=== PATIENT | male | born 1995 | race Caucasian/White ===

== ENCOUNTER 2020-06-30 12:21 | Inpatient (IN) | payer OTHER, SELFPAY ==
[2020-06-30 12:30] VITALS: BP 159/95; PULSE 66; RESP 18; TEMP 36.7; O2SAT 98
--- NOTE | 2020-06-30 12:34 | ED.PSYCH ---
HPI - Psych General Chief Complaint: Psychiatric Symptoms Stated Complaint: crisis si Time Seen by Provider: 06/30/20 12:34 Source: EMS Mode of arrival: EMS Limitations: no limitations History of Present Illness HPI Narrative: This is a 25-year-old male who presents via EMS he has a history of anxiety, depression, ADHD presenting from the crisis office where he was outside the office complaining of psychiatric distress. States has had increasing social stressors has had thoughts of SI. States he is overwhelmed has been some inconsistencies with him taking his anti depressants. Denies any EtOH or illicit substance use. MD complaint: suicidal ideation (Vague SI) and feels depressed Relieving factors: none Exacerbating factors: other (Social stressors/poor medication compliance) Treatments prior to arrival: none Related Data Home Medications Medication Instructions Recorded Confirmed venlafaxine 1 cap PO DAILY 06/30/20 06/30/20 Allergies Allergy/AdvReac Type Severity Reaction Status Date / Time Sulfa (Sulfonamide Allergy Rash Verified 06/30/20 12:33 Antibiotics) Review of Systems Review of Systems: Constitutional: No Weight loss, No Fever, No Chills, No Night Sweats, No Fatigue, No Malaise ENT/Mouth: No Hearing loss, No Ear Pain, No Nasal Congestion, No Sinus Pain, No Hoarseness, No sore throat, No Rhinorrhea, No Swallowing Difficulty Eyes: No Eye Pain, No Swelling, No Redness, No Foreign Body, No Discharge, No Vision Changes Cardiovascular: No Chest Pain, No SOB, No Dyspnea on Exertion, No Orthopnea, No Edema, No Palpitations Respiratory: No Cough, No Sputum, No Wheezing, No Dyspnea Gastrointestinal: No Nausea, No Vomiting, No Diarrhea, No Constipation, No abdominal Pain, No Hematochezia, No Melena Genitourinary: no irregular bleeding, No Dysuria, No Urinary Frequency, No Hematuria, No Urinary Incontinence, No Urgency, No Flank Pain, No Urinary Flow Changes, No Hesitancy Musculoskeletal: No joint pain, No Myalgias, No Joint Swelling Skin: No Skin Lesions, No rash Neuro: No Weakness, No Numbness, No Paresthesias, No Loss of Consciousness, No Dizziness, No Headache Psych: As noted in HPI Heme/Lymph: No Bruising, No Bleeding,No Lymphadenopathy Endocrine: No Polyuria, No Polydipsia, No Temperature Intolerance Yes all other systems are reviewed and are negative PMFSH Past Medical History Medical History Anxiety Depression PTSD (post-traumatic stress disorder) Social History Social History Alcohol intake: never Smoked in Last 30 Days: No Use of substances other than those prescribed or required for medical reasons: No Advance Directives: No Advance Directives Information Provided: Yes Physical Exam Vital Signs: Vital Signs: Last Vital Signs Temp 98.0 F 06/30/20 12:30 Pulse 66 06/30/20 12:30 Resp 16 06/30/20 17:11 BP 159/95 H 06/30/20 12:30 Pulse Ox 98 06/30/20 12:30 Body Mass Index 20.0 Reviewed Const: General: cooperative and healthy appearing; No acute distress or intoxicated appearing Nutritional Appearance: average body habitus Orientation/consciousness: patient oriented x3 HENMT: Head: Yes normal to inspection Ears: hearing grossly normal bilaterally Eyes: General: appearance normal, both eyes and all related structures Visual Bledsoe: normal visual bledsoe by confrontation Neck: Neck: Yes normal visual inspection, No positive Brudzinski's sign, No positive Kernig's sign and No tender Thyroid: Thyroid normal Chest: Chest palpation & inspection: normal inspection of the chest Resp: Effort & Inspection: normal respiratory effort Auscultation: clear to auscultation bilaterally Cardio: Jugular venous distension: no JVD Rhythm: regular rhythm Heart sounds: S1 normal heart sound present and S2 normal heart sound present GI: Inspection: Yes normal to inspection Percussion: Yes normal to percussion Auscultation: normal bowel sounds : General: Yes no CVA tenderness Back/Spine/Pelvis: Back: no CVA tenderness Skin: General skin exam: no rashes or lesions noted Neuro: General: patient oriented x3 Extrem: General: Yes normal to inspection Course Course Course Narrative: 1235 In review 25-year-old male with history of anxiety, depression, ADHD presents via EMS from outside of crisis team office with complaint of vague suicidal ideations which she denies at this time but reported to EMS. States all this is secondary to ?Life stressors? and laboratories on this as he had a COVID exposure couple weeks ago he has had negative COVID test but this has made his anxiety worse and also some compliance issues with his antidepressants. He denies any illicit substance use. Offers no medical complaints at this time. 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 Will get UA/U tox and EtOH for medical screening and obtain crisis evaluation. Consultations Consultation #1: [id number] Evaluate by the care team recommended further inpatient level care voluntary. Will make bed search Son at the night team pending disposition. MDM - Psych Lab Data Result diagrams: 06/30/20 19:52 06/30/20 19:52 Labs: Lab Results 06/30/20 06/30/20 06/30/20 Range/Units 13:34 19:52 19:52 WBC 7.0 (4.8-10.8) X10*3/uL RBC 5.30 (4.60-5.80) X10*6/uL Hgb 16.1 (14.0-18.0) g/dl Hct 47.3 (42-52) % MCV 89.2 (80-98) fL MCH 30.4 (27.0-33.0) pg MCHC 34.0 (31.0-36.0) g/dl RDW 12.1 (11.0-16.0) % Plt Count 175 (160-400) X10*3/uL MPV 12.1 (9.4-12.4) fL Immature Gran % (Auto) 0.3 (0.0-0.4) % Neut % (Auto) 57.7 (45-73) % Lymph % (Auto) 30.0 (20-40) % [place] % (Auto) 7.4 (2-11) % Eos % (Auto) 3.7 (0-4) % Baso % (Auto) 0.9 (0-2) % Lymph # (Auto) 2.1 (1.2-4.9) X10*3/uL [place] # (Auto) 0.5 (0.1-1.2) X10*3/uL Eos # (Auto) 0.3 (0.0-0.4) X10*3/uL Baso # (Auto) 0.1 (0.0-0.2) X10*3/uL Abs Immat Gran (auto) 0.02 (0.00-0.03) X10*3/uL Absolute Neuts (auto) 4.0 (2.0-8.3) X10*3/uL Absolute Nucleated RBC 0.000 (0.0-0.012) X10*3/uL Nucleated RBC % (auto) 0.0 (0.0-0.2) /100WBC BUN 14 (9-16) mg/dL Creatinine 0.79 (0.5-1.4) mg/dL Estim Creat Clear Calc 107.2 Estimated GFR > 60 Random Glucose 84 (60-115) mg/dL Calcium 9.5 (8.4-10.2) mg/dL Total Bilirubin 0.4 (0.0-1.0) mg/dL AST 52 H (5-37) U/L ALT 121 H (0-40) U/L Alkaline Phosphatase 82 (39-117) U/L Total Protein 7.9 (6.5-8.0) g/dL Albumin 4.7 (3.5-5.0) g/dL Urine Color Urine Appearance Urine pH (5.0-8.0) Ur Specific [place] (1.005-1.025) Urine Protein (NEG-TRACE) MG/DL Urine Glucose (UA) (NEG) MG/DL Urine Ketones (NEG) MG/DL Urine Blood (NEG) Urine Nitrite (NEG) Ur Leukocyte Esterase (NEG) Urine RBC (0) /HPF Urine WBC (0-4) /HPF Ur Squamous Epith Cells /LPF Urine Bacteria /LPF Urine Mucus /LPF Urine Opiates Screen (Not Detect) Ur Barbiturates Screen (Not Detect) Ur Phencyclidine Scrn (Not Detect) Ur Amphetamines Screen (Not Detect) U Benzodiazepines Scrn (Not Detect) Urine Cocaine Screen (Not Detect) U Marijuana (THC) Screen (Not Detect) Ethyl Alcohol < 10 mg/dL 06/30/20 06/30/20 Range/Units 20:07 20:07 WBC (4.8-10.8) X10*3/uL RBC (4.60-5.80) X10*6/uL Hgb (14.0-18.0) g/dl Hct (42-52) % MCV (80-98) fL MCH (27.0-33.0) pg MCHC (31.0-36.0) g/dl RDW (11.0-16.0) % Plt Count (160-400) X10*3/uL MPV (9.4-12.4) fL Immature Gran % (Auto) (0.0-0.4) % Neut % (Auto) (45-73) % Lymph % (Auto) (20-40) % [place] % (Auto) (2-11) % Eos % (Auto) (0-4) % Baso % (Auto) (0-2) % Lymph # (Auto) (1.2-4.9) X10*3/uL [place] # (Auto) (0.1-1.2) X10*3/uL Eos # (Auto) (0.0-0.4) X10*3/uL Baso # (Auto) (0.0-0.2) X10*3/uL Abs Immat Gran (auto) (0.00-0.03) X10*3/uL Absolute Neuts (auto) (2.0-8.3) X10*3/uL Absolute Nucleated RBC (0.0-0.012) X10*3/uL Nucleated RBC % (auto) (0.0-0.2) /100WBC BUN (9-16) mg/dL Creatinine (0.5-1.4) mg/dL Estim Creat Clear Calc Estimated GFR Random Glucose (60-115) mg/dL Calcium (8.4-10.2) mg/dL Total Bilirubin (0.0-1.0) mg/dL AST (5-37) U/L ALT (0-40) U/L Alkaline Phosphatase (39-117) U/L Total Protein (6.5-8.0) g/dL Albumin (3.5-5.0) g/dL Urine Color YELLOW Urine Appearance CLEAR Urine pH 6.0 (5.0-8.0) Ur Specific [place] >= 1.030 H (1.005-1.025) Urine Protein NEG (NEG-TRACE) MG/DL Urine Glucose (UA) NEG (NEG) MG/DL Urine Ketones NEG (NEG) MG/DL Urine Blood TRACE (NEG) Urine Nitrite NEG (NEG) Ur Leukocyte Esterase NEG (NEG) Urine RBC 0-2 (0) /HPF Urine WBC 0-2 (0-4) /HPF Ur Squamous Epith Cells 1+ /LPF Urine Bacteria 1+ /LPF Urine Mucus 1+ /LPF Urine Opiates Screen Not Detected (Not Detect) Ur Barbiturates Screen Not Detected (Not Detect) Ur Phencyclidine Scrn Not Detected (Not Detect) Ur Amphetamines Screen Not Detected (Not Detect) U Benzodiazepines Scrn Not Detected (Not Detect) Urine Cocaine Screen Not Detected (Not Detect) U Marijuana (THC) Screen POSITIVE H (Not Detect) Ethyl Alcohol mg/dL Discharge Plan Discharge Clinical Impression: Depression Prescriptions: No Action venlafaxine 75 mg capsule,extended release 24hr 1 cap PO DAILY RF: 0
--- NOTE | 2020-06-30 12:41 | PC.NURSE ---
Pt changed into hospital attire w/ security, belongings placed in [facility]. Pt is calm and cooperative at this time.
[2020-06-30 14:00] LABS: Ethanol < 10 mg/dL
--- NOTE | 2020-06-30 14:32 | PC.NURSE ---
faxed to [facility]. attempt to call and unable to get through.
[2020-06-30 17:11] VITALS: RESP 16
--- NOTE | 2020-06-30 17:32 | PC.NURSE ---
JIMMIE faxed and called.
--- NOTE | 2020-06-30 17:44 | PC.NURSE ---
DINNER TRAY GIVEN.
--- NOTE | 2020-06-30 19:33 | PC.NURSE ---
Report received. PT is inquiring about his plan for treatment. This nurse explained that he is an inpatient bed search and our CARE team is working to accommodate his needs. PT is agreeing to plan, calm and cooperative.
[2020-06-30 20:03] LABS: MANUAL DIFF FLAG NO
[2020-06-30 20:05] LABS: Basophils Absolute Auto 0.1 X10*3/uL (0.0-0.2); Basophils Percent Auto 0.9 % (0-2); Eosinophils Absolute Auto 0.3 X10*3/uL (0.0-0.4); Eosinophils Percent Auto 3.7 % (0-4); Hematocrit 47.3 % (42-52); Hemoglobin 16.1 g/dl (14.0-18.0); Imm Gran Abs Auto 0.02 X10*3/uL (0.00-0.03); Imm Gran Pct Auto 0.3 % (0.0-0.4); Lymphocytes Absolute Auto 2.1 X10*3/uL (1.2-4.9); Mean Corpuscular Hemoglobin 30.4 pg (27.0-33.0); Mean Corpuscular Volume 89.2 fL (80-98); Mean Platelet Volume 12.1 fL (9.4-12.4); Monocytes Absolute Auto 0.5 X10*3/uL (0.1-1.2); Monocytes Percent Auto 7.4 % (2-11); Neutrophils Percent Auto 57.7 % (45-73); Platelet Count 175 X10*3/uL (160-400); Red Cell Distribution Width 12.1 % (11.0-16.0)
[2020-06-30 20:16] LABS: Glucose Urine UA NEG (NEG); Leukocyte Esterase Urine NEG (NEG); Nitrite Urine NEG (NEG); Specific Gravity - Urine >= 1.030 (1.005-1.025); Urine Blood TRACE (NEG); Urine Ketones NEG (NEG); Urine Protein NEG (NEG-TRACE)
[2020-06-30 20:22] LABS: Appearance Urine CLEAR; Color Urine YELLOW
[2020-06-30 20:23] LABS: Bacteria Urine 1+ /LPF; Mucus Urine 1+ /LPF; RBC Urine 0-2 /HPF (0); Squamous Epithelial Cell Urine 1+ /LPF; WBC Urine 0-2 /HPF (0-4)
[2020-06-30 20:39] LABS: Amphetamine Screen Urine Not Detected (Not Detect); Barbiturates, Urine Not Detected (Not Detect); Benzodiazepines Screen Urine Not Detected (Not Detect); Cannabinoid Screen Urine POSITIVE (Not Detect); Cocaine Screen Urine Not Detected (Not Detect); Opiate Screen Urine Not Detected (Not Detect); Phencyclidine Screen Urine Not Detected (Not Detect)
[2020-06-30 21:14] LABS: Alanine Aminotransferase 121 U/L (0-40); Albumin Level 4.7 g/dL (3.5-5.0); Alkaline Phosphatase 82 U/L (39-117); Aspartate Amino Transferase 52 U/L (5-37); Bilirubin Total 0.4 mg/dL (0.0-1.0); Blood Urea Nitrogen 14 mg/dL (9-16); Calcium 9.5 mg/dL (8.4-10.2); Creatinine Clr Calc Pharmacy 107.2; Estimated Glomerular Filt Rate > 60; Glucose Random 84 mg/dL (60-115); Total Protein 7.9 g/dL (6.5-8.0)
[2020-06-30 21:20] LABS: Anion Gap 15 (12-20); Carbon Dioxide 28 mmol/L (22-29); Chloride 101 mmol/L (96-108); Potassium 4.2 mmol/l (3.3-5.1); Sodium 140 mmol/L (135-145)
[2020-06-30 21:24] LABS: COVID-19 Test Negative (Negative); IDNOW Serial# 9DD0AD1C
--- NOTE | 2020-06-30 21:54 | MHC.CARE ---
Pt evaluated by CARE team at 1800, disposition for voluntary inpt psych admission. Unable to communicate with insurance company this evening, CARE team will contact in the morning to determine if hospital is in-network. Pt will remain in ED overnight. Possible M5 admission pending insurance approval.
[2020-06-30 23:09] VITALS: BP 130/86; PULSE 66; RESP 18; TEMP 36.4; O2SAT 97
--- NOTE | 2020-07-01 00:31 | PC.NURSE ---
PT complaining that he is having difficulty sleeping. Provider notified and one time dose of trazadone was given.
[2020-07-01] MEDS: traZODone HCL 100 MG TABLET PO (01:02)
[2020-07-01 06:45] VITALS: BP 111/58; PULSE 84; RESP 16; TEMP 36.5; O2SAT 97
[2020-07-01 09:22] VITALS: BP 131/64; PULSE 80; RESP 16; TEMP 37.2; O2SAT 97
[2020-07-01] MEDS: Venlafaxine HCl ER 75 MG CAP.ER.24H PO (09:31)
--- NOTE | 2020-07-01 10:09 | PC.NURSE ---
Patient awake and alert. skin PWD, resp even and non labored, speaking in full, clear sentences. denies SI at this time, states he is not feeling depressed. awaiting disposition
--- NOTE | 2020-07-01 11:23 | MHC.CARE ---
Calls to Call [facility] [phone] [employer] Subha?this is an, ?open access plan, there is no network? Reimbursement rate is 125% of Medicare, transferred to Rosio from [employer]?member is active, Lev is the primary card quijano. $500 copay, 90% covered after $1,250 deductible $7,000 out of pocket, transferred to Melissa?Reference # [id number] Fax clinical to [phone] for review and ongoing, transferred to RN for clinical review for admission?left message with CARE Team call back info, member ID and reference #
--- NOTE | 2020-07-01 12:16 | PC.NURSE ---
patient aware of and agreeable to plan of admission to .
[2020-07-01 14:19] VITALS: BP 137/86; PULSE 92; RESP 14; O2SAT 97
--- NOTE | 2020-07-01 14:21 | PC.NURSE ---
Patient resting in bed, skin pwd, resp even and non labored. speaking in full, clear sentences, denies SI. waiting to hear back from CARE team
--- NOTE | 2020-07-01 15:31 | PC.NURSE ---
Report received. Pt currently resting in bed, no complaints at this time.
--- NOTE | 2020-07-01 15:51 | PC.NURSE ---
Nurse to nurse given to PARAM Mason on M5
[2020-07-02] MEDS: traZODone HCL 50 MG TABLET PO (01:09)
[2020-07-02 06:00] VITALS: BP 147/84; PULSE 96; TEMP 36.6; O2SAT 97
[2020-07-02] MEDS: Venlafaxine HCl ER 75 MG CAP.ER.24H PO (08:50)
[2020-07-02 09:18] LABS: Alanine Aminotransferase 166 U/L (0-40); Albumin Level 4.5 g/dL (3.5-5.0); Alkaline Phosphatase 80 U/L (39-117); Anion Gap 10 (12-20); Aspartate Amino Transferase 75 U/L (5-37); Bilirubin Total 1.1 mg/dL (0.0-1.0); Blood Urea Nitrogen 14 mg/dL (9-16); Calcium 9.5 mg/dL (8.4-10.2); Carbon Dioxide 30 mmol/L (22-29); Chloride 100 mmol/L (96-108); Estimated Glomerular Filt Rate > 60; Glucose Fasting 89 mg/dL (60-99); Potassium 4.3 mmol/l (3.3-5.1); Sodium 136 mmol/L (135-145); Total Protein 7.4 g/dL (6.5-8.0)
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
[2020-07-02 14:37] LABS: Amylase 104 U/L (28-100); Lipase 48 U/L (8-78)
[2020-07-02 14:58] LABS: TSH reflex Free T4 0.59 mIU/mL (0.32-4.0); Vitamin D 25-OH Total 5.3 ng/mL (>30)
[2020-07-02 15:32] LABS: Folate 19.1 ng/mL (> or = 4.0); Vitamin B12 363 pg/mL (200-900)
[2020-07-02 18:00] VITALS: BP 138/75; PULSE 88; TEMP 36.3
[2020-07-02] MEDS: OXcarbazepine 300 MG TABLET PO (20:56)
[2020-07-03] MEDS: traZODone HCL 50 MG TABLET PO ×2 (01:37→21:25)
[2020-07-03 06:00] VITALS: BP 117/75; PULSE 110; TEMP 36.4; O2SAT 97
[2020-07-03 08:03] LABS: HBsAGNum1 0.16 S/CO (0.00-0.99); Hepatitis A Antibody IgM 0.19 Index (0-0.79); Hepatitis B Surface Antigen Negative (Negative); ~Hepatitis A Antibody IgM Nonreactive (Nonreactive)
[2020-07-03 08:17] LABS: HBc Num1 0.05 S/CO (0.00-0.79); Hepatitis B Core Antibody Nonreactive (Nonreactive); ~Hepatitis B Surface Antibody NONREACTIVE (Nonreactive); ~Hepatitis C Antibody Nonreactive (Nonreactive)
[2020-07-03] MEDS: OXcarbazepine 300 MG TABLET PO ×2 (08:29→20:41)
[2020-07-03] MEDS: Venlafaxine HCl ER 75 MG CAP.ER.24H PO (08:29)
[2020-07-03 18:00] VITALS: BP 135/80; PULSE 99; TEMP 36.4
--- NOTE | 2020-07-03 18:02 | P.PNPSI_ITS ---
Subjective Subjective Date of Service: 07/03/20 Reason For Visit: Depression anxiety si Subjective Notes: Conditional Voluntary Interim History: Pt reports he is tolerating Trileptal. Finds milieu helpful. This was the right decision for me. Discussed PHP. Medication Compliance: Yes Side effects from medications: No Attending Groups: Yes Review of Systems Review of Systems Yes all other systems are reviewed and are negative (denies sx of concern or pain) Psychiatric: Reports anxiety, Reports depression, Reports difficulty concentrating, Reports hopelessness, Reports irritability, Reports anhedonia, Reports mood swings, Reports panic attacks and Reports suicidal ideation (passive-lifelong, no current plan or intent) Mental Status Exam Mental Status Exam Patient Appearance: Appropriate Patient Orientation: Person, Place, Time and Situation Level of Consciousness: Alert Patient Behavior: Cooperative Mood Description: Depressed and Anxious Affect Description: Flat Patient Cognition Impaired: No Ability to Follow Directions: Good Speech Pattern: Spontaneous Speech Memory Description: Intact Hallucinations: None Delusions: Not Present Thought Process: Intact Thought Content: positive for Intact Depressive Symptoms: Increased Anxiety, Diff. Making Decisions, Increased Irritability, Difficulty Sleeping, Crying Spells, Loss of Int. in Activity, Feelings of Worthlessness, Feelings of Guilt, Unhappiness, Thoughts of D eath/Suicide, Low Self Esteem, Loss of Energy and Difficulty Concentrating Judgement: Good Diagnostics Vital Signs (24Hr): Vital Signs - 24 hr 07/03/20 06:00 Temperature 97.5 F Pulse Rate 110 H Blood Pressure 117/75 Pulse Oximetry 97 Body Mass Index 20.0 Labs Results: 06/30/20 19:52 07/02/20 08:20 Labs: Laboratory Results - last 48 hr 07/02/20 07/02/20 07/02/20 08:20 08:20 14:28 Sodium 136 Potassium 4.3 Chloride 100 Carbon Dioxide 30 H Anion Gap 10 L BUN 14 Creatinine 0.77 Estim Creat Clear Calc 110.0 Estimated GFR > 60 Fasting Glucose 89 Calcium 9.5 Total Bilirubin 1.1 H AST 75 H ALT 166 H Alkaline Phosphatase 80 Total Protein 7.4 Albumin 4.5 Amylase 104 H Lipase 48 Vitamin B12 363 25-OH Vitamin D Total 5.3 Folate 19.1 TSH 0.59 Hepatitis A IgM Ab Nonreactive Hep Bs Antigen Negative Hep Bs Antibody NONREACTIVE Hep B Core Total Ab Nonreactive Hepatitis C Ab (EIA) Nonreactive Medications Medications Current Medications Generic Name Dose Route Start Last Admin Trade Name Freq PRN Reason Stop Dose Admin Hydroxyzine HCl 25 mg 07/03/20 01:20 Hydroxyzine Hcl 25 Mg Tablet PO BEDTIME PRN Sleep Oxcarbazepine 300 mg 07/02/20 21:00 07/03/20 08:29 Oxcarbazepine 300 Mg Tablet PO 300 mg BID DOROTHY Administration Trazodone HCl 50 mg 07/03/20 01:14 07/03/20 01:37 Trazodone Hcl 50 Mg Tablet PO 50 mg BEDTIME PRN Administration Sleep Venlafaxine HCl 75 mg 07/01/20 09:00 07/03/20 08:29 Venlafaxine Hcl Er 75 Mg Cap.Er.24h PO 75 mg DAILY DOROTHY Administration Allergies Allergies Allergy/AdvReac Type Severity Reaction Status Date / Time Sulfa (Sulfonamide Allergy Rash Verified 06/30/20 12:33 Antibiotics) Assessment & Plan Assessment & Plan (1) Bipolar II disorder: Status: Acute Code(s): F31.81 - Bipolar II disorder Assessment and Plan: -Continue Trileptal -Consider [facility] referral (2) Cannabis use disorder, severe, dependence: Status: Acute Code(s): F12.20 - Cannabis dependence, uncomplicated (3) ADHD: Status: Acute Code(s): F90.9 - Attention-deficit hyperactivity disorder, unspecified type Greater than 50% of the session was spent on counseling and/or coordination of care
[2020-07-03] MEDS: hydrOXYzine HCL 25 MG TABLET PO (22:34)
[2020-07-04 06:00] VITALS: BP 119/80; PULSE 70; TEMP 36.8
[2020-07-04] MEDS: OXcarbazepine 300 MG TABLET PO ×2 (09:28→20:03)
[2020-07-04] MEDS: Venlafaxine HCl ER 75 MG CAP.ER.24H PO (09:29)
[2020-07-04 18:00] VITALS: BP 138/92; PULSE 100
--- NOTE | 2020-07-04 22:13 | HO.PSYCHPN ---
Subjective Subjective Date of Service: 07/05/20 Reason For Visit: Depression anxiety si Interim History: pt reports he's doing much better, in good mood, no SI. He says he's sleeping well and thinks that new medication is helping. He denies any med side-effects. Patient thinks he's getting ready for discharge and would very much like to start [facility]. Pt shared further of his struggles with anxiety and how triggers from his past continue to derail him. Pt would like outpt therapy but has trouble affording it. Otherwise, no complaints. Nursing staff reports patient can at times have immature behaviors in milue, but gets along well with peers and staff and is engaged in treatment. Medication Compliance: Yes Side effects from medications: No Attending Groups: Yes Mental Status Exam Mental Status Exam Patient Appearance: Well Grooomed Patient Orientation: Person, Place, Time and Situation Level of Consciousness: Awake and Appropriate Patient Behavior: Appropriate and Good Eye Contact Mood Description: Happy Affect Description: Happy Ability to Follow Directions: Good Speech Pattern: Clear and Appropriate Hallucinations: None Delusions: Not Present Thought Process: Intact and Linear Thought Content: positive for Intact Judgement: Fair Diagnostics Vital Signs (24Hr): Vital Signs - 24 hr 07/04/20 06:00 07/04/20 18:00 Temperature 98.2 F Pulse Rate 70 100 Blood Pressure 119/80 138/92 H Body Mass Index 20.0 Labs Results: 06/30/20 19:52 07/02/20 08:20 Labs: Laboratory Results - last 48 hr 07/02/20 14:28 Hepatitis A IgM Ab Nonreactive Hep Bs Antigen Negative Hep Bs Antibody NONREACTIVE Hep B Core Total Ab Nonreactive Hepatitis C Ab (EIA) Nonreactive Medications Medications Current Medications Generic Name Dose Route Start Last Admin Trade Name Freq PRN Reason Stop Dose Admin Hydroxyzine HCl 25 mg 07/03/20 01:20 07/03/20 22:34 Hydroxyzine Hcl 25 Mg Tablet PO 25 mg BEDTIME PRN Administration Sleep Oxcarbazepine 300 mg 07/02/20 21:00 07/04/20 20:03 Oxcarbazepine 300 Mg Tablet PO 300 mg BID DOROTHY Administration Trazodone HCl 50 mg 07/03/20 01:14 07/03/20 21:25 Trazodone Hcl 50 Mg Tablet PO 50 mg BEDTIME PRN Administration Sleep Venlafaxine HCl 75 mg 07/01/20 09:00 07/04/20 09:29 Venlafaxine Hcl Er 75 Mg Cap.Er.24h PO 75 mg DAILY DOROTHY Administration Allergies Allergies Allergy/AdvReac Type Severity Reaction Status Date / Time Sulfa (Sulfonamide Allergy Rash Verified 06/30/20 12:33 Antibiotics) Assessment & Plan Impression: hx of mood lability; stabilizing on unit; tolerating medications to good effect dx: bipolar II likely ptsd plan; continue current tx plan; no changes Greater than 50% of the session was spent on counseling and/or coordination of care
[2020-07-04] MEDS: traZODone HCL 50 MG TABLET PO (23:13)
[2020-07-05 06:45] VITALS: BP 143/94; PULSE 98; RESP 16; TEMP 36.2; O2SAT 95
[2020-07-05] MEDS: Venlafaxine HCl ER 75 MG CAP.ER.24H PO (08:26)
[2020-07-05] MEDS: OXcarbazepine 300 MG TABLET PO ×2 (08:26→22:12)
[2020-07-05 16:40] VITALS: BP 118/80; PULSE 84; TEMP 36.4
[2020-07-05] MEDS: traZODone HCL 50 MG TABLET PO (22:18)
--- NOTE | 2020-07-05 23:28 | HO.PSYCHPN ---
Subjective Subjective Date of Service: 07/05/20 Reason For Visit: Depression anxiety si Interim History: pt reports he's doing well; good mood and future focused, still hoping to go to Partial day program. No complaints. Medication Compliance: Yes Side effects from medications: No Attending Groups: Yes Mental Status Exam Mental Status Exam Narrative: Patient Appearance: Well Grooomed Patient Orientation: Person, Place, Time and Situation Level of Consciousness: Awake and Appropriate Patient Behavior: Appropriate and Good Eye Contact Mood Description: Happy Affect Description: Happy Ability to Follow Directions: Good Speech Pattern: Clear and Appropriate Hallucinations: None Delusions: Not Present Thought Process: Intact and Linear Thought Content: positive for Intact Judgement: Fair Diagnostics Vital Signs (24Hr): Vital Signs - 24 hr 07/05/20 06:45 07/05/20 16:40 Temperature 97.1 F 97.6 F Pulse Rate 98 84 Respiratory Rate 16 Blood Pressure 143/94 H 118/80 Pulse Oximetry 95 Body Mass Index 20.0 Labs Results: 06/30/20 19:52 07/02/20 08:20 Medications Medications Current Medications Generic Name Dose Route Start Last Admin Trade Name Freq PRN Reason Stop Dose Admin Hydroxyzine HCl 25 mg 07/03/20 01:20 07/03/20 22:34 Hydroxyzine Hcl 25 Mg Tablet PO 25 mg BEDTIME PRN Administration Sleep Oxcarbazepine 300 mg 07/02/20 21:00 07/05/20 22:12 Oxcarbazepine 300 Mg Tablet PO 300 mg BID DOROTHY Administration Trazodone HCl 50 mg 07/03/20 01:14 07/05/20 22:18 Trazodone Hcl 50 Mg Tablet PO 50 mg BEDTIME PRN Administration Sleep Venlafaxine HCl 75 mg 07/01/20 09:00 07/05/20 08:26 Venlafaxine Hcl Er 75 Mg Cap.Er.24h PO 75 mg DAILY DOROTHY Administration Allergies Allergies Allergy/AdvReac Type Severity Reaction Status Date / Time Sulfa (Sulfonamide Allergy Rash Verified 06/30/20 12:33 Antibiotics) Assessment & Plan Impression: hx of mood lability; stabilizing on unit; tolerating medications to good effect dx: bipolar II likely ptsd adhd plan; continue current tx plan; no changes Greater than 50% of the session was spent on counseling and/or coordination of care
[2020-07-06 05:40] VITALS: BP 133/96; PULSE 92; RESP 18; TEMP 36.7; O2SAT 99
[2020-07-06] MEDS: OXcarbazepine 300 MG TABLET PO ×2 (09:42→21:59)
[2020-07-06] MEDS: Venlafaxine HCl ER 75 MG CAP.ER.24H PO (09:42)
[2020-07-06 17:45] VITALS: BP 134/85; PULSE 87; TEMP 36.4
--- NOTE | 2020-07-06 22:06 | P.PNPSI_ITS ---
Subjective Subjective Date of Service: 07/06/20 Reason For Visit: Depression anxiety si Subjective Notes: Conditional Voluntary Interim History: I am thinking about the next step in treatment. I would like to attend [facility]. 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 Will it interfere? Reports he is finding regime useful, is feeling improved and thinking about discharge Medication Compliance: Yes Side effects from medications: No Attending Groups: Intermittent Review of Systems Review of Systems Yes all other systems are reviewed and are negative (denies current symptoms) Psychiatric: Reports anxiety, Reports depression and Reports difficulty concentrating Mental Status Exam Mental Status Exam Patient Appearance: Appropriate Patient Orientation: Person, Place and Situation Level of Consciousness: Alert Patient Behavior: Appropriate and Anxious Mood Description: Anxious Affect Description: Anxious Patient Cognition Impaired: No Ability to Follow Directions: Good Speech Pattern: Spontaneous Speech Memory Description: Intact Hallucinations: None Delusions: Not Present Thought Process: Intact Thought Content: positive for Intact Depressive Symptoms: Increased Anxiety Judgement: Good Diagnostics Vital Signs (24Hr): Vital Signs - 24 hr 07/06/20 05:40 Temperature 98.0 F Pulse Rate 92 Respiratory Rate 18 Blood Pressure 133/96 H Pulse Oximetry 99 Body Mass Index 20.0 Labs Results: 06/30/20 19:52 07/02/20 08:20 Medications Medications Current Medications Generic Name Dose Route Start Last Admin Trade Name Freq PRN Reason Stop Dose Admin Hydroxyzine HCl 25 mg 07/03/20 01:20 07/03/20 22:34 Hydroxyzine Hcl 25 Mg Tablet PO 25 mg BEDTIME PRN Administration Sleep Oxcarbazepine 300 mg 07/02/20 21:00 07/06/20 21:59 Oxcarbazepine 300 Mg Tablet PO 300 mg BID DOROTHY Administration Trazodone HCl 50 mg 07/03/20 01:14 07/05/20 22:18 Trazodone Hcl 50 Mg Tablet PO 50 mg BEDTIME PRN Administration Sleep Venlafaxine HCl 75 mg 07/01/20 09:00 07/06/20 09:42 Venlafaxine Hcl Er 75 Mg Cap.Er.24h PO 75 mg DAILY DOROTHY Administration Allergies Allergies Allergy/AdvReac Type Severity Reaction Status Date / Time Sulfa (Sulfonamide Allergy Rash Verified 06/30/20 12:33 Antibiotics) Assessment & Plan Assessment & Plan (1) Bipolar II disorder: Status: Acute Code(s): F31.81 - Bipolar II disorder Assessment and Plan: -Continue current regime -PHP Intake Greater than 50% of the session was spent on counseling and/or coordination of care Patient educated on: medication risk/benefits and therapeutic strategies Informed Consent: understands and further education needed Reason for contiued inpatient stay Substantial Risk for: harm to self and inability to function
[2020-07-06] MEDS: traZODone HCL 50 MG TABLET PO (22:11)
[2020-07-07 06:10] VITALS: BP 116/72; PULSE 80; RESP 18; TEMP 36.5; O2SAT 98
[2020-07-07] MEDS: Venlafaxine HCl ER 75 MG CAP.ER.24H PO (08:25)
[2020-07-07] MEDS: OXcarbazepine 300 MG TABLET PO (08:25)
--- NOTE | 2020-07-07 16:00 | P.DS_ITS ---
DS: Providers Provider Date of Service: 07/07/20 Date of admission: 07/01/20 17:15 Date of discharge: 07/07/20 Primary care physician: Outside Physician Admitting clinician: Jeannine Morris Attending physician on admission: Preston Gutierrez Attending physician on discharge: Preston Gutierrez Discharging clinician: Jeannine Morris DS: Diagnosis Discharge Diagnosis (1) Bipolar II disorder: Status: Acute Problem details: Pt presented to local crisis team with increasing sx of depression, anxiety and SI when he went to work the morning of admission. DS: Medications Discharge Medications Home Medications: Previous Rx's Medication Instructions Recorded oxcarbazepine 300 mg PO BID #60 tab 07/07/20 venlafaxine 1 cap PO DAILY #30 cap 07/07/20 Discharge Plan Discharge Anticipated Discharge Date/Time: 07/07/20 16:00 Patient Disposition: Home, Self-Care Referrals: Dr. Camryn Bull [Other] - 07/15/20 1:40 pm (*Telehealth Appointment via My Chart ) [facility] [Other] (Referral sent, they will follow up with intake appointment. Call in a few days if you do not hear from them) Radha PRIEST RN [Other] (Ext [phone] [employer] Call with any issues accessing care. ) Discharge Medications: New oxcarbazepine 300 mg Tablet 300 mg PO BID Qty: 60 RF: 0 Continued venlafaxine 75 mg capsule,extended release 24hr 1 cap PO DAILY Qty: 30 RF: 0 Discharge Orders: Discharge Order (Routine); Ordered 07/07/20 Ordered By: Jeannine Morris Diet: advance to usual diet Activity on Discharge: As tolerated Patient Instructions: Oxcarbazepine (By mouth) Stand Alone Forms: Community Support Discharge Date/Time: 07/07/20 14:16 Visit Report Forms: Patient Portal Discharge page Care Plan Goals: Decrease in symptoms of depression Participate in out patient treatment Health Concerns: Mood stability Plan of Treatment: Follow up with out patient providers Take medications as directed Mental Status Exam Mental Status Exam Patient Appearance: Appropriate Patient Orientation: Person, Place, Time and Situation Level of Consciousness: Alert Patient Behavior: Appropriate Mood Description: Calm Affect Description: Calm Patient Cognition Impaired: No Ability to Follow Directions: Good Speech Pattern: Spontaneous Speech Memory Description: Intact Hallucinations: None Delusions: Not Present Thought Process: Intact Thought Content: positive for Intact Judgement: Good Data Data Completed and Pending Completed studies during hospitalization [Text1]: 06/30/20 06/30/20 06/30/20 19:52 19:52 19:52 WBC 7.0 RBC 5.30 Hgb 16.1 Hct 47.3 MCV 89.2 MCH 30.4 MCHC 34.0 RDW 12.1 Plt Count 175 MPV 12.1 Immature Gran % (Auto) 0.3 Neut % (Auto) 57.7 Lymph % (Auto) 30.0 [place] % (Auto) 7.4 Eos % (Auto) 3.7 Baso % (Auto) 0.9 Lymph # (Auto) 2.1 [place] # (Auto) 0.5 Eos # (Auto) 0.3 Baso # (Auto) 0.1 Abs Immat Gran (auto) 0.02 Absolute Neuts (auto) 4.0 Absolute Nucleated RBC 0.000 Nucleated RBC % (auto) 0.0 Sodium 140 Potassium 4.2 Chloride 101 Carbon Dioxide 28 Anion Gap 15 BUN 14 Creatinine 0.79 Estim Creat Clear Calc 107.2 Estimated GFR > 60 Random Glucose 84 Fasting Glucose Calcium 9.5 Total Bilirubin 0.4 AST 52 H ALT 121 H Alkaline Phosphatase 82 Total Protein 7.9 Albumin 4.7 Amylase Lipase Vitamin B12 25-OH Vitamin D Total Folate TSH Urine Color Urine Appearance Urine pH Ur Specific [place] Urine Protein Urine Glucose (UA) Urine Ketones Urine Blood Urine Nitrite Ur Leukocyte Esterase Urine RBC Urine WBC Ur Squamous Epith Cells Urine Bacteria Urine Mucus Urine Opiates Screen Ur Barbiturates Screen Ur Phencyclidine Scrn Ur Amphetamines Screen U Benzodiazepines Scrn Urine Cocaine Screen U Marijuana (THC) Screen COVID-19 ([facility]) Negative COVID-19 Clin Com See Note Hepatitis A IgM Ab Hep Bs Antigen Hep Bs Antibody Hep B Core Total Ab Hepatitis C Ab (EIA) 06/30/20 06/30/20 07/02/20 20:07 20:07 08:20 WBC RBC Hgb Hct MCV MCH MCHC RDW Plt Count MPV Immature Gran % (Auto) Neut % (Auto) Lymph % (Auto) [place] % (Auto) Eos % (Auto) Baso % (Auto) Lymph # (Auto) [place] # (Auto) Eos # (Auto) Baso # (Auto) Abs Immat Gran (auto) Absolute Neuts (auto) Absolute Nucleated RBC Nucleated RBC % (auto) Sodium 136 Potassium 4.3 Chloride 100 Carbon Dioxide 30 H Anion Gap 10 L BUN 14 Creatinine 0.77 Estim Creat Clear Calc 110.0 Estimated GFR > 60 Random Glucose Fasting Glucose 89 Calcium 9.5 Total Bilirubin 1.1 H AST 75 H ALT 166 H Alkaline Phosphatase 80 Total Protein 7.4 Albumin 4.5 Amylase 104 H Lipase 48 Vitamin B12 25-OH Vitamin D Total 5.3 Folate TSH 0.59 Urine Color YELLOW Urine Appearance CLEAR Urine pH 6.0 Ur Specific [place] >= 1.030 H Urine Protein NEG Urine Glucose (UA) NEG Urine Ketones NEG Urine Blood TRACE Urine Nitrite NEG Ur Leukocyte Esterase NEG Urine RBC 0-2 Urine WBC 0-2 Ur Squamous Epith Cells 1+ Urine Bacteria 1+ Urine Mucus 1+ Urine Opiates Screen Not Detected Ur Barbiturates Screen Not Detected Ur Phencyclidine Scrn Not Detected Ur Amphetamines Screen Not Detected U Benzodiazepines Scrn Not Detected Urine Cocaine Screen Not Detected U Marijuana (THC) Screen POSITIVE H COVID-19 ([facility]) COVID-19 Clin Com Hepatitis A IgM Ab Hep Bs Antigen Hep Bs Antibody Hep B Core Total Ab Hepatitis C Ab (EIA) 07/02/20 07/02/20 08:20 14:28 WBC RBC Hgb Hct MCV MCH MCHC RDW Plt Count MPV Immature Gran % (Auto) Neut % (Auto) Lymph % (Auto) [place] % (Auto) Eos % (Auto) Baso % (Auto) Lymph # (Auto) [place] # (Auto) Eos # (Auto) Baso # (Auto) Abs Immat Gran (auto) Absolute Neuts (auto) Absolute Nucleated RBC Nucleated RBC % (auto) Sodium Potassium Chloride Carbon Dioxide Anion Gap BUN Creatinine Estim Creat Clear Calc Estimated GFR Random Glucose Fasting Glucose Calcium Total Bilirubin AST ALT Alkaline Phosphatase Total Protein Albumin Amylase Lipase Vitamin B12 363 25-OH Vitamin D Total Folate 19.1 TSH Urine Color Urine Appearance Urine pH Ur Specific [place] Urine Protein Urine Glucose (UA) Urine Ketones Urine Blood Urine Nitrite Ur Leukocyte Esterase Urine RBC Urine WBC Ur Squamous Epith Cells Urine Bacteria Urine Mucus Urine Opiates Screen Ur Barbiturates Screen Ur Phencyclidine Scrn Ur Amphetamines Screen U Benzodiazepines Scrn Urine Cocaine Screen U Marijuana (THC) Screen COVID-19 ([facility]) COVID-19 Clin Com Hepatitis A IgM Ab Nonreactive Hep Bs Antigen Negative Hep Bs Antibody NONREACTIVE Hep B Core Total Ab Nonreactive Hepatitis C Ab (EIA) Nonreactive DS: Summary Hospital Course Hospital Course: Pt was admitted on a conditional voluntary basis. He described a family history of bipolar disorder and for himself, no symptoms of overt tabatha, however, episodic hypomania, along with a longstanding hx of ADHD. Described cannabis use to self-medicate and we discussed how this could intensify his symptoms. He was asked to reconsider his use of this substance and abstain, which he agreed it had not been helpful. He described multiple conflicts with colleagues in different employment situations and utilized the milieu groups and team to begin to address these issues. Trileptal was added to Venlafaxine without SE and with reported improvement. Pt worked with social service to find appropriate aftercare as his insurance did not offer clear guidelines of whom their provider network consisted of. Time spent discussing smoking cessation with patient: 3 to 10 minutes Status at Discharge Cognitive/behavioral status at discharge: alert, oriented, mood and affect were without lability, depression, anxiety. Functional status at discharge: independent ambulation Overall status at discharge: patient is back to baseline Time Spent with Patient Time attestation: Total time spent providing and/or coordinating discharge services: 30 Time spent: Less than 30 minutes
== END 2020-07-07 14:16 | disposition home or self-care (01) | DRG 885 ==
LOC: HO.ED 07-01 15:49 → HO.PM5 07-01 18:18
PROVIDERS: Clinical Nurse Specialist Psychiatric/Mental Health, Adult; Nurse Practitioner Primary Care; Admitting Provider Psychiatry & Neurology Psychiatry; Emergency Provider Emergency Medicine; Visit Provider Psychiatry & Neurology Psychiatry
DX: F31.81 Bipolar II disorder (principal); R45.851 Suicidal ideations; F12.20 Cannabis dependence, uncomplicated; F90.9 Attention-deficit hyperactivity disorder, unspecified type; Z20.828 Contact with and (suspected) exposure to other viral communicable diseases; Z79.899 Other long term (current) drug therapy
CPT/HCPCS: 36415; 80053; 80307; 80320; 81001; 82150; 82306; 82607; 82746; 83690; 84443; 85025; 86704; 86706; 86709; 86803; 87340; 87635; 99222; 99231; 99232; 99285